=== PATIENT | male | born 1965 | race African-American/Black ===

== ENCOUNTER → 2018-10-11 | Day surgery (SDC) | payer BC ==
[2018-10-10 13:20] LABS: CLARITY,URINE CLEAR (CLEAR); COLOR,URINE YELLOW (YELLOW); LEUKOCYTE ESTERASE ,URINE 1+ (NEGATIVE); NITRITE,URINE NEGATIVE (NEGATIVE)
[2018-10-10 13:21] LABS: BILIRUBIN,URINE NEGATIVE (NEGATIVE); KETONES,URINE NEGATIVE (NEGATIVE); PROTEIN,URINE DIPSTICK NEGATIVE (NEGATIVE); URINE UROBILINOGEN 0.2 mg/dL (0.2 - 1)
[2018-10-10 13:27] LABS: ALANINE AMINOTRANSFERASE 26 IU/L (0-55); ALBUMIN 3.7 g/dL (3.5-5.0); ALBUMIN/GLOBULIN RATIO 1.1 (0.8-2.0); ALKALINE PHOSPHATASE 82 IU/L (40-150); ANION GAP 10.5 mmol/L (8-16); BLOOD UREA NITROGEN 11 mg/dL (7-26); BUN/CREATININE RATIO 11 (6-25); CARBON DIOXIDE 25 mmol/L (22-29); CHLORIDE 100 mmol/L (98-107); CREATININE, SERUM 0.97 mg/dL (0.72-1.25); EST GLOMERULAR FILTRATION RATE > 60 ML/MIN (60-); GLUCOSE 69 mg/dL (74-118); POTASSIUM 3.5 mmol/L (3.5-5.1); SODIUM 132 mmol/L (136-145)
[2018-10-10 13:42] LABS: BASOPHILS % 0.4 % (0.0-1.0); EOSINOPHILS # (AUTO) 0.2 (0.0-0.4); EOSINOPHILS % 3.9 % (0.0-6.0); HEMATOCRIT 40.5 % (38.2-49.6); HEMOGLOBIN 12.4 g/dL (14.0-18.0); LYMPHOCYTES # (AUTO) 1.6 (1.0-3.2); LYMPHOCYTES % 31.7 % (18.0-39.1); MEAN CORPUSCULAR HEMOGLOBIN 23.1 pg (28-32); MEAN CORPUSCULAR HGB CONC 30.6 g/dL (31-35); MEAN CORPUSCULAR VOLUME 75.6 fL (81-99); MONOCYTES # (AUTO) 0.5 (0.2-0.8); MONOCYTES % 8.7 % (4.4-11.3); NEUTROPHILS # (AUTO) 2.8 (2.1-6.9); NEUTROPHILS % 55.1 % (38.7-80.0); PLATELET COUNT 297 x10e3/uL (140-360); RED BLOOD COUNT 5.36 x10e6/uL (4.3-5.7); RED CELL DISTRIBUTION WIDTH 13.9 % (11.7-14.4)
[~2018-10-11] MED LIST: FENTANYL CITRATE/PF 100MCG/2 ML INJ ONE; LIDOCAINE HCL 2% LOCAL INJ 5 ML SDV VIAL INJ ONE; MELOXICAM7.5 MG PO; MIDAZOLAM HCL 5MG/ML 2ML VIAL ONE; PAROXETINE HCL20 MG PO; PLAQUENIL200 MG PO; PROPOFOL IV EMULSION 10 MG/ML 20 ML VIAL ONE; PROPRANOLOL HCL40 MG PO; QUETIAPINE FUM100 MG PO; STRATTERA100 MG PO; VENLAFAXINE HCL75 M1 PO; VYVANSE70 MG PO; ZORVOLEX PO
[2018-10-11 14:00] VITALS: BP 134/78
== END | disposition home or self-care (01) ==
LOC: OR 11:25
PROVIDERS: ATTEND Surgery
DX: K52.9 Noninfective gastroenteritis and colitis, unspecified (principal); K29.50 Unspecified chronic gastritis without bleeding; B96.81 Helicobacter pylori [H. pylori] as the cause of diseases classified elsewhere; K64.5 Perianal venous thrombosis; K29.80 Duodenitis without bleeding; E66.9 Obesity, unspecified; I10 Essential (primary) hypertension; F41.9 Anxiety disorder, unspecified; F32.9 Major depressive disorder, single episode, unspecified; Z01.810 Encounter for preprocedural cardiovascular examination; Z01.812 Encounter for preprocedural laboratory examination
CPT/HCPCS: 36415; 43239; 45378; 80053; 81003; 85025; 88305; 88312; 93005; J2001; J2250; J2704

== ENCOUNTER 2019-02-28 08:28 | Observation (INO) | payer BC ==
[2019-02-26 16:08] LABS: BASOPHILS % 0.4 % (0.0-1.0); EOSINOPHILS # (AUTO) 0.1 (0.0-0.4); HEMATOCRIT 47.5 % (38.2-49.6); HEMOGLOBIN 14.3 g/dL (14.0-18.0); LYMPHOCYTES # (AUTO) 1.3 (1.0-3.2); LYMPHOCYTES % 25.4 % (18.0-39.1); MEAN CORPUSCULAR HEMOGLOBIN 22.6 pg (28-32); MEAN CORPUSCULAR HGB CONC 30.1 g/dL (31-35); MONOCYTES # (AUTO) 0.4 (0.2-0.8); MONOCYTES % 7.7 % (4.4-11.3); NEUTROPHILS # (AUTO) 3.3 (2.1-6.9); NEUTROPHILS % 64.3 % (38.7-80.0); PLATELET COUNT 298 x10e3/uL (140-360); RED BLOOD COUNT 6.33 x10e6/uL (4.3-5.7); RED CELL DISTRIBUTION WIDTH 13.9 % (11.7-14.4)
[2019-02-26 16:29] LABS: ANION GAP 15.8 mmol/L (8-16); BLOOD UREA NITROGEN 11 mg/dL (7-26); BUN/CREATININE RATIO 9 (6-25); CALCIUM 9.6 mg/dL (8.4-10.2); CARBON DIOXIDE 23 mmol/L (22-29); CHLORIDE 105 mmol/L (98-107); CREATININE, SERUM 1.17 mg/dL (0.72-1.25); EST GLOMERULAR FILTRATION RATE > 60 ML/MIN (60-); GLUCOSE 115 mg/dL (74-118); POTASSIUM 3.8 mmol/L (3.5-5.1); SODIUM 140 mmol/L (136-145)
[~2019-02-28] VITALS: Ht 177.8 cm; Wt 117.9 kg
[~2019-02-28 08:28] MED LIST changes: -FENTANYL CITRATE/PF 100MCG/2 ML INJ ONE; -LIDOCAINE HCL 2% LOCAL INJ 5 ML SDV VIAL INJ ONE; -MIDAZOLAM HCL 5MG/ML 2ML VIAL ONE; -PROPOFOL IV EMULSION 10 MG/ML 20 ML VIAL ONE
[2019-02-28] MEDS ORDERED: BUPIVACAINE 0.25%/EPI 30ML SDV INJ ONE (09:52)
[2019-02-28] MEDS ORDERED: LIDOCAINE HCL 2% 30 ML TUBE ONE (09:52)
[2019-02-28] MEDS ORDERED: LIDOCAINE HCL 1% LOCAL INJ 20 ML VIAL ONE (09:53)
[2019-02-28] MEDS: DEXTROSE 5%/LACTATED RINGERS 1,000 ML IV SCH ×2 (12:17→21:40)
[2019-02-28] MEDS ORDERED: KETOROLAC TROMETHAMINE 30 MG/ML VIAL ONE ×2 (12:27→17:40)
[2019-02-28] MEDS ORDERED: HYDROCODONE/APAP 7.5MG-325MG 1 EA TAB PO PRN (12:30)
[2019-02-28] MEDS ORDERED: NALOXONE HCL INJ 0.4 MG/ML AMP IV PRN (12:30)
[2019-02-28] MEDS ORDERED: ACETAMINOPHEN 1000 MG/100 ML IV PRN (12:30)
[2019-02-28] MEDS ORDERED: HYDROMORPHONE 0.2MG/ML-SOD CHL 30ML PCA SYRINGE IV PRN (12:30)
[2019-02-28] MEDS ORDERED: FENTANYL CITRATE/PF 100MCG/2 ML INJ ONE ×2 (13:09→19:27)
[2019-02-28] MEDS ORDERED: HYDROMORPHONE 2MG/ML 2 MG/ML ML ONE (13:28)
[2019-02-28] MEDS ORDERED: HYDRALAZINE HCL 20 MG/ML VIAL ONE (13:41)
[2019-02-28] MEDS ORDERED: MORPHINE SULFATE INJ 4 MG/ML INJ 1ML ONE (14:16)
[2019-02-28] MEDS ORDERED: HYDROMORPHONE 1MG/1ML INJ ONE (14:23)
[2019-02-28] MEDS ORDERED: LABETALOL HCL 0 ML ONE (14:49)
[2019-02-28] MEDS ORDERED: DIPHENHYDRAMINE HCL INJ 50 MG/ML VIAL ONE (14:55)
--- NOTE | 2019-02-28 15:03 | NUR ---
report received from PACU, patient to arrive to unit via stretcher, alert and oriented with at bedside.
[2019-02-28 15:15] VITALS: BP 149/90
--- NOTE | 2019-02-28 15:15 | NUR ---
patient arrived to unit via stretcher, alert and oriented with at bedside. call martin within reach and bed in lowest position.
--- NOTE | 2019-02-28 15:15 | Operative Report ---
DATE OF PROCEDURE: 02/28/2019 SURGEON: Dawson Saini MD PREOPERATIVE DIAGNOSIS: Internal and external bleeding hemorrhoids. POSTOPERATIVE DIAGNOSIS: Internal and external bleeding hemorrhoids. OPERATION PERFORMED: Internal and external hemorrhoidectomy. RESEARCH PHARMACIST: CARLYLE Banks. ANESTHESIA: General. COMPLICATIONS: None. ESTIMATED BLOOD LOSS: Minimal. DESCRIPTION OF PROCEDURE: With the patient lying in bed in the lithotomy position under good general anesthesia, the perineum was prepped with Betadine solution and draped in the usual manner. Complete anorectal block was then performed with 0.25% Marcaine and 1% lidocaine mixed in equal parts. Examination at this point revealed there were two large friable bleeding groups of hemorrhoids, one at the 12 o'clock position, the other one at the 4 o'clock position. Both were done in similar fashion. The base of the hemorrhoid was ligated with 0 chromic suture. The external component was then resected along with the internal component. The base of the hemorrhoid was then oversewn with the same 0 chromic suture. Hemostasis was ascertained and the skin and mucosa were then reapproximated with interrupted sutures of 3-0 chromic. Both groups were done in similar fashion. Hemostasis was ascertained. A Gelfoam pack impregnated with Xylocaine was placed. A dressing was applied. The sponge, lap, and needle count was correct. The patient tolerated the procedure well and returned to the recovery room in stable condition. Dawson Saini MD JLR/MODL /[id number]
[2019-02-28 15:48] VITALS: BP 149/90
[2019-02-28] MEDS: DIPHENHYDRAMINE HCL 25 MG CAP PO PRN (16:54)
[2019-02-28] MEDS ORDERED: SEVOFLURANE INHAL SOLN 250 ML PEN BTL ONE (17:40)
[2019-02-28] MEDS ORDERED: DEXAMETHASONE SOD PHOS INJ 4 MG/ML VIAL ONE (17:40)
[2019-02-28] MEDS ORDERED: PROPOFOL IV EMULSION 10 MG/ML 20 ML VIAL ONE (17:40)
[2019-02-28] MEDS ORDERED: LIDOCAINE HCL 2% LOCAL INJ 5 ML SDV VIAL INJ ONE (17:40)
[2019-02-28] MEDS ORDERED: ONDANSETRON HCL INJ 2MG/ML 2ML 2 MG/ML VIAL ONE (17:40)
[2019-02-28] MEDS: CEFOXITIN 1GM/ D5W 50ML 50 ML IV SCH ×2 (18:00→23:14)
--- NOTE | 2019-02-28 18:40 | NUR ---
walking rounds made with material handler 2nd shift nurse, patient aware of change and in no distress. call martin within reach and bed in lowest position.
[2019-02-28] MEDS ORDERED: MIDAZOLAM HCL 2 MG/2 ML VIAL ONE (19:27)
[2019-02-28 19:40] VITALS: BP 118/68
[2019-02-28 20:13] VITALS: BP 118/68
[2019-02-28] MEDS ORDERED: PROPRANOLOL HCL 40 MG TAB PO SCH (21:00)
[2019-02-28] MEDS ORDERED: QUETIAPINE FUMARATE 100 MG TAB PO SCH (21:00)
[2019-03-01 00:39] VITALS: BP 136/83
--- NOTE | 2019-03-01 01:43 | NUR ---
Patient attempted to have a bowel movement. External surface gauze was removed and then replaced along with new mesh underwear. No bowel movement, just gas.
[2019-03-01] MEDS ORDERED: CEFOXITIN 1GM/ D5W 50ML 50 ML IV ONE (04:15)
[2019-03-01 05:16] VITALS: BP 96/53
--- NOTE | 2019-03-01 06:40 | NUR ---
ROUNDED WITH RING MAKING MACHINE OPERATOR NURSE, PATIENT AWARE OF CHANGE AND IN NO DISTRESS. CALL [facility] WITHIN REACH AND BED IN LOWEST POSITION.
[2019-03-01 08:21] VITALS: BP 126/80
[2019-03-01] MEDS: DIPHENHYDRAMINE HCL 25 MG CAP PO PRN (08:54)
[2019-03-01 08:55] VITALS: BP 126/80
[2019-03-01] MEDS ORDERED: VENLAFAXINE HCL 75 MG CAPCR PO SCH (09:00)
[2019-03-01] MEDS: DEXTROSE 5%/LACTATED RINGERS 1,000 ML IV SCH (09:15)
[2019-03-01 12:07] VITALS: BP 129/80
[2019-03-01] MEDS ORDERED: TYLENOL WITH C1 EACH PO (13:57)
[2019-03-01] MEDS ORDERED: KENALOG OINT TP (13:58)
[2019-03-01] MEDS ORDERED: SURFAK240 MG PO (13:58)
[2019-03-01] MEDS ORDERED: KEFLEX500 MG PO (13:59)
--- NOTE | 2019-03-01 14:20 | NUR ---
PATIENT ALERT AND ORIENTED. DISCHARGE INSTRUCTIONS GIVEN AT THIS TIME, PATIENT VERBALIZED UNDERSTANDING. IV DISCONTINUED, CATHETER IN TACT AND SMALL DRESSING APPLIED. PATIENT REFUSED WHEELCHAIR ASSISTANCE BUT WILL BE ESCORTED TO PERSONAL AUTO FOR TO DRIVE HOME.
== END 2019-03-01 14:20 | disposition home or self-care (01) ==
LOC: OR 08:28 → PACU V 12:19 → MED/SURG 15:15
PROVIDERS: ADMIT Surgery; ATTEND Surgery
DX: K64.8 Other hemorrhoids (principal); K64.4 Residual hemorrhoidal skin tags; I10 Essential (primary) hypertension
CPT/HCPCS: 36415; 46260; 80048; 85025; 88304; 93005; G0378 ×2; J0360; J1100; J1170 ×2; J1200; J1885; J2001 ×2; J2250; J2270; J2405; J2704; J3010; J7121

== ENCOUNTER → 2020-01-23 | Day surgery (SDC) | payer BC, OTHER ==
[2020-01-20 16:44] LABS: BASOPHILS % 0.3 % (0.0-1.0); EOSINOPHILS # (AUTO) 0.1 (0.0-0.4); EOSINOPHILS % 1.5 % (0.0-6.0); HEMATOCRIT 38.9 % (38.2-49.6); LYMPHOCYTES # (AUTO) 1.8 (1.0-3.2); LYMPHOCYTES % 26.9 % (18.0-39.1); MEAN CORPUSCULAR HEMOGLOBIN 22.7 pg (28-32); MEAN CORPUSCULAR HGB CONC 30.8 g/dL (31-35); MEAN CORPUSCULAR VOLUME 73.5 fL (81-99); MONOCYTES # (AUTO) 0.5 (0.2-0.8); MONOCYTES % 7.4 % (4.4-11.3); NEUTROPHILS # (AUTO) 4.4 (2.1-6.9); NEUTROPHILS % 63.6 % (38.7-80.0); PLATELET COUNT 244 x10e3/uL (140-360); RED BLOOD COUNT 5.29 x10e6/uL (4.3-5.7); RED CELL DISTRIBUTION WIDTH 14.8 % (11.7-14.4)
[2020-01-20 17:11] LABS: ANION GAP 13.9 mmol/L (8-16); BLOOD UREA NITROGEN 11 mg/dL (7-26); BUN/CREATININE RATIO 9 (6-25); CALCIUM 8.7 mg/dL (8.4-10.2); CARBON DIOXIDE 24 mmol/L (22-29); CHLORIDE 104 mmol/L (98-107); CREATININE, SERUM 1.16 mg/dL (0.72-1.25); EST GLOMERULAR FILTRATION RATE > 60 ML/MIN (60-); GLUCOSE 101 mg/dL (74-118); POTASSIUM 3.9 mmol/L (3.5-5.1); SODIUM 138 mmol/L (136-145)
[~2020-01-23] MED LIST changes: +FENTANYL CITRATE/PF 100MCG/2 ML INJ ONE; +KEFLEX500 MG PO; +KENALOG OINT TP; +MIDAZOLAM HCL 2 MG/2 ML VIAL ONE; +NAPROXEN250 MG PO; +PROPOFOL IV EMULSION 10 MG/ML 20 ML VIAL ONE; +SURFAK240 MG PO; +TYLENOL WITH C1 EACH PO
--- NOTE | 2020-01-23 07:10 | NUR ---
SPIRITUAL CARE - Pre-Surgery Assessment: Pt in bed. Pt reported supportive attention from family and friends. Intervention: Security Flex Officer provided pastoral presence, hospitality, and sympathetic listening. Acquainted pt with availability of fish farm laborer while hospitalized. Outcome: Pt expressed appreciation for visit. No need for follow up indicated at this time. [facility] Spiritual Care Department O: [phone]
[2020-01-23 09:40] VITALS: BP 123/91
== END | disposition home or self-care (01) ==
LOC: OR 06:19
PROVIDERS: ATTEND Surgery
DX: K29.50 Unspecified chronic gastritis without bleeding (principal); B96.81 Helicobacter pylori [H. pylori] as the cause of diseases classified elsewhere; K21.9 Gastro-esophageal reflux disease without esophagitis; Z01.810 Encounter for preprocedural cardiovascular examination; Z01.812 Encounter for preprocedural laboratory examination; Z11.59 Encounter for screening for other viral diseases; K29.70 Gastritis, unspecified, without bleeding; K64.9 Unspecified hemorrhoids
CPT/HCPCS: 36415; 43239; 80048; 85025; 87635; 88305; 88312; 93005; J2250; J2704; J3010

== ENCOUNTER 2020-11-16 19:32 | Emergency (ER) | payer BC, OTHER ==
[~2020-11-16] VITALS: Ht 177.8 cm; Wt 117.9 kg
[~2020-11-16 19:32] MED LIST changes: -FENTANYL CITRATE/PF 100MCG/2 ML INJ ONE; -MIDAZOLAM HCL 2 MG/2 ML VIAL ONE; -PROPOFOL IV EMULSION 10 MG/ML 20 ML VIAL ONE
[2020-11-16] MEDS ORDERED: KETOROLAC TROMETHAMINE 30 MG/ML VIAL ONE (20:12)
[2020-11-16] MEDS ORDERED: KETOROLAC TROMETHAMINE 30 MG/ML VIAL IV ONE (20:15)
[2020-11-16 20:35] LABS: BASOPHILS % 0.3 % (0.0-1.0); EOSINOPHILS % 0.6 % (0.0-6.0); HEMATOCRIT 37.6 % (38.2-49.6); HEMOGLOBIN 11.5 g/dL (14.0-18.0); LYMPHOCYTES # (AUTO) 0.7 (1.0-3.2); LYMPHOCYTES % 20.9 % (18.0-39.1); MEAN CORPUSCULAR HEMOGLOBIN 22.3 pg (28-32); MEAN CORPUSCULAR HGB CONC 30.6 g/dL (31-35); MONOCYTES # (AUTO) 0.3 (0.2-0.8); NEUTROPHILS # (AUTO) 2.4 (2.1-6.9); NEUTROPHILS % 68.9 % (38.7-80.0); PLATELET COUNT 192 x10e3/uL (140-360); RED BLOOD COUNT 5.15 x10e6/uL (4.3-5.7); RED CELL DISTRIBUTION WIDTH 13.5 % (11.7-14.4)
[2020-11-16 20:40] LABS: INR 0.96; PROTHROMBIN TIME 13.4 seconds (11.9-14.5)
[2020-11-16 20:41] LABS: PARTIAL THROMBOPLASTIN TIME 35.2 seconds (23.8-35.5)
[2020-11-16 20:50] LABS: ALANINE AMINOTRANSFERASE 24 IU/L (0-55); ALBUMIN 3.6 g/dL (3.5-5.0); ALBUMIN/GLOBULIN RATIO 1.1 (0.8-2.0); ALKALINE PHOSPHATASE 77 IU/L (40-150); ANION GAP 14.6 mmol/L (8-16); BLOOD UREA NITROGEN 20 mg/dL (7-26); BUN/CREATININE RATIO 17 (6-25); CARBON DIOXIDE 22 mmol/L (22-29); CHLORIDE 104 mmol/L (98-107); CREATINE KINASE 303 IU/L (30-200); CREATININE, SERUM 1.16 mg/dL (0.72-1.25); EST GLOMERULAR FILTRATION RATE > 60 ML/MIN (60-); GLUCOSE 132 mg/dL (74-118); POTASSIUM 3.6 mmol/L (3.5-5.1); SODIUM 137 mmol/L (136-145)
== END 2020-11-16 21:15 | disposition home or self-care (01) ==
LOC: ER 21:11
DX: U07.1 COVID-19 (principal); R05 Cough; M79.10 Myalgia, unspecified site; I10 Essential (primary) hypertension; M32.9 Systemic lupus erythematosus, unspecified; F41.9 Anxiety disorder, unspecified
CPT/HCPCS: 36415; 71045; 80053; 82550; 82553; 84484; 85025; 85610; 85730; 93005; 99284; J1885; U0002